=== PATIENT | male | born 1985 | race Caucasian/White ===

== ENCOUNTER 2019-02-27 22:52 | Emergency (ER) | payer MEDICAID ==
[2019-02-28] MEDS: DEXAMETHASONE 10 MG/ML 1 ML INJ IM (01:09)
[2019-02-28] MEDS: ALBUTEROL 0.083% (NEB) 2.5 MG/3 ML AMP HHN (01:13)
[2019-02-28] MEDS: IPRATROPIUM (NEB) 0.5 MG/2.5 ML AMP HHN (01:13)
== END 2019-02-28 02:49 | disposition home or self-care (01) ==
LOC: FTE 22:52
DX: R06.2 Wheezing (principal)
CPT/HCPCS: 71045; 94664; 96372; 99284-25